=== PATIENT | female | born 1960 ===

== ENCOUNTER 2020-04-30 08:56 | Observation (INO) ==
[~2020-04-30 08:56] MED LIST: Buffered Lidocaine 1% SYRIN 1 ml INTRADERM ONE; Dexamethasone IV 4 MG/ML VIAL 1 ml VIAL IV SLOW PU ONE; Lactated Ringers 1000 ml BAG 1,000 ML IV SCH
[2020-04-30] MEDS ORDERED: Dexamethasone IV 4 MG/ML VIAL 1 ml VIAL ONE ×2 (09:15→10:55)
[2020-04-30] MEDS ORDERED: ceFAZolin 2 GM PREMIX 2 GM/50 ML BAG ONE (09:15)
[2020-04-30] MEDS ORDERED: Buffered Lidocaine 1% SYRIN 1 ml INTRADERM ONE (09:16)
[2020-04-30] MEDS ORDERED: Lidocaine 1% w EPI 1:100,000 MDV 20 ML VIAL ONE (10:38)
[2020-04-30] MEDS ORDERED: Vancomycin 1,000 MG VIAL ONE (10:38)
[2020-04-30] MEDS ORDERED: Bupivacaine 0.5% SDV PF 30ML VIAL ONE ×2 (10:38→11:45)
[2020-04-30] MEDS ORDERED: ROPIVACAINE 5 MG/ML 30 ML BTL (0.5%) ONE (10:53)
[2020-04-30] MEDS ORDERED: Midazolam 2 mg/2 ml VIAL 1 mg/ml 2 ml VIAL (2 mg) ONE (10:54)
[2020-04-30] MEDS ORDERED: Phenylephrine 40 mcg/mL 10mL (400mcg) SYRINGE ONE (12:12)
[2020-04-30] MEDS ORDERED: Propofol 10 MG/ML 20 ML BTL ONE ×2 (12:12→12:59)
[2020-04-30] MEDS ORDERED: Ondansetron 4 mg VIAL 2 MG/ML 2 ml VIAL IV PRN ×2 (12:56→13:44)
[2020-04-30] MEDS ORDERED: Naloxone 0.4 mg VIAL 0.4 mg/ml 1 ml VIAL IV PRN (12:56)
[2020-04-30] MEDS ORDERED: Ondansetron ODT 4 mg TAB 4 MG TAB PO PRN (13:44)
[2020-04-30] MEDS ORDERED: Magnesium Hydroxide LIQ 30 ML UDC PO PRN (13:44)
[2020-04-30] MEDS ORDERED: diPHENhydraMINE 25 mg TAB PO PRN (13:44)
[2020-04-30] MEDS ORDERED: Lactulose 30 ml UDC PO PRN (13:44)
[2020-04-30] MEDS ORDERED: diPHENhydraMINE IV 50 MG/ML 1 ml VIAL (BENADRYL) IV PRN (13:44)
[2020-04-30] MEDS ORDERED: Morphine 2 MG/ML SYRINGE IV PRN (13:58)
[2020-04-30] MEDS ORDERED: Albuterol HFA INHALER 8 gm MDI INH PRN (13:59)
[2020-04-30] MEDS: D5W 1/2 NS 1000 ml BAG 1,000 ML IV SCH (14:30)
[2020-04-30] MEDS: ceFAZolin 1 GM ADVAN 1 GM in NS 0.9% 50 ML 50 ML IVPB SCH (20:59)
[2020-04-30] MEDS ORDERED: CBD OIL PO SCH (21:00)
[2020-04-30] MEDS: Magnesium Hydroxide LIQ 30 ML UDC PO SCH (22:35)
[2020-05-01] MEDS: D5W 1/2 NS 1000 ml BAG 1,000 ML IV SCH (01:06)
[2020-05-01] MEDS: ceFAZolin 1 GM ADVAN 1 GM in NS 0.9% 50 ML 50 ML IVPB SCH ×2 (04:30→12:25)
[2020-05-01 06:02] LABS: Hematocrit 29 % (35-47); Hemoglobin 9.8 g/dL (12.0-16.0); Mean Platelet Volume 8.2 fL (7.4-10.4); Platelet Count 205 10^3/uL (150-450)
[2020-05-01 06:30] LABS: Calcium 8.7 mg/dL (8.6-10.3); EGFR African American 124.2 (>60); EGFR Non-African American 102.7 (>60); Potassium 3.8 mmol/L (3.5-5.0)
[2020-05-01 08:11] VITALS: BP 100/64
[2020-05-01] MEDS ORDERED: Vitamin THERAPEUTIC TAB PO SCH (09:00)
[2020-05-01] MEDS: Magnesium Hydroxide LIQ 30 ML UDC PO SCH (09:48)
== END 2020-05-01 13:35 | disposition home or self-care (01) ==
LOC: OR 08:56 → SSU 08:56
PROVIDERS: ADMIT Orthopaedic Surgery; ATTEND Orthopaedic Surgery